=== PATIENT | female | born 1930 | race Caucasian/White ===

== ENCOUNTER 2017-05-16 08:11 | Inpatient (IN) | payer MEDICARE ==
[~2017-05-16] VITALS: Ht 149.9 cm; Wt 60.9 kg
[~2017-05-16 08:11] MED LIST: BACL10 PO; BUSP15 PO; BUSP5 PO; CLON.2 PO; CLON.5 PO; DILT120 PO; ELIQUIS2.5 MG PO; LORA.5 PO; TRAM50 PO; Toprol Xl25 MG PO
[2017-05-16 08:58] LABS: BASOPHILS ABSOLUTE AUTO 0.01 K/mm3 (0.00-0.23); BASOPHILS PERCENT AUTO 0 % (0-2); EOSINOPHILS ABSOLUTE AUTO 0.03 K/mm3 (0.00-0.68); EOSINOPHILS PERCENT AUTO 1 % (0-6); Hematocrit 35.2 % (33.0-51.0); Hemoglobin 12.7 g/dL (11.5-16.0); IMMATURE GRAN ABSOLUTE AUTO 0.02 K/mm3 (0.00-0.10); IMMATURE GRAN PERCENT AUTO 0 % (0-1); LYMPHOCYTES ABSOLUTE AUTO 0.31 K/mm3 (0.84-5.20); LYMPHOCYTES PERCENT AUTO 5 % (21-46); MONOCYTES ABSOLUTE AUTO 0.88 K/mm3 (0.16-1.47); MONOCYTES PERCENT AUTO 13 % (4-13); Mean Corpuscular HGB 29.4 pg (26.0-34.0); Mean Corpuscular HGB Conc 36.1 g/dL (31.5-36.5); Mean Corpuscular Volume 82 fL (80-100); Mean Platelet Volume 8.9 fL (9.1-12.4); NEUTROPHILS ABSOLUTE AUTO 5.41 K/mm3 (1.96-9.15); NEUTROPHILS PERCENT AUTO 81 % (41-73); Platelet Count 294 K/mm3 (150-400); RDW Coefficient Variation 11.3 % (11.7-14.2); RDW Standard Deviation 33.8 fL (35.1-46.3); Red Blood Cell Count 4.32 M/mm3 (3.80-5.20); White Blood Cell Count 6.66 K/mm3 (4.00-11.30)
[2017-05-16 09:19] LABS: Influenza A Negative (NEGATIVE); Influenza B Negative (NEGATIVE)
[2017-05-16 09:25] LABS: Alanine Aminotransfer (ALT/SGP 22 U/L (12-78); Albumin, Blood 3.5 g/dL (3.4-5.0); Alk Phos 81 U/L (50-136); Anion Gap 10 mmol/L (6-16); Aspartate Aminotrans (AST/SGOT 16 U/L (12-37); Bilirubin, Total 1.2 mg/dL (0.1-1.0); Blood Urea Nitrogen 15 mg/dL (8-24); Bun/Creatinine Ratio 35.5 (12.0-20.0); CO2, Blood 25 mmol/L (21-32); Calcium, Blood 7.7 mg/dL (8.5-10.1); Chloride, Blood 77 mmol/L (98-108); Creatinine, Blood 0.42 mg/dL (0.40-1.00); Globulin, Blood 3.6 g/dL (2.2-4.0); Glomerular Filtration Rate >60 (60-); Glucose, Blood 130 mg/dL (70-99); Potassium, Blood 3.3 mmol/L (3.5-5.5); Sodium, Blood 112 mmol/L (136-145); Total Protein, Blood 7.1 g/dL (6.4-8.2)
[2017-05-16 10:39] LABS: Magnesium, Blood 1.7 mg/dL (1.6-2.4)
[2017-05-16] MEDS ORDERED: PRAM.5 PO ×2 (12:21→12:22)
[2017-05-16] MEDS ORDERED: ZESTORETIC 20-121 EA (12:23)
[2017-05-16 14:26] LABS: Magnesium, Blood 1.7 mg/dL (1.6-2.4); Uric Acid, Blood 2.4 mg/dL (2.6-6.0)
[2017-05-16 14:31] LABS: Phosphorus, Blood 1.6 mg/dL (2.5-4.9); Potassium, Blood 3.5 mmol/L (3.5-5.5)
[2017-05-16] MEDS ORDERED: MAGOXI400 PO (20:56)
[2017-05-16] MEDS ORDERED: UBID10 PO (20:57)
[2017-05-17 04:58] LABS: Hematocrit 34.5 % (33.0-51.0); Hemoglobin 12.2 g/dL (11.5-16.0)
[2017-05-17 05:24] LABS: Albumin, Blood 3.1 g/dL (3.4-5.0); Anion Gap 10 mmol/L (6-16); Blood Urea Nitrogen 14 mg/dL (8-24); Bun/Creatinine Ratio 27.5 (12.0-20.0); CO2, Blood 23 mmol/L (21-32); Calcium, Blood 7.6 mg/dL (8.5-10.1); Chloride, Blood 87 mmol/L (98-108); Creatinine, Blood 0.51 mg/dL (0.40-1.00); Glomerular Filtration Rate >60 (60-); Glucose, Blood 97 mg/dL (70-99); Magnesium, Blood 1.8 mg/dL (1.6-2.4); Phosphorus, Blood 1.7 mg/dL (2.5-4.9); Potassium, Blood 3.4 mmol/L (3.5-5.5); Sodium, Blood 120 mmol/L (136-145)
[2017-05-17] MEDS ORDERED: METO25ER PO (12:48)
[2017-05-18 04:55] LABS: Hematocrit 31.8 % (33.0-51.0)
[2017-05-18 05:09] LABS: Albumin, Blood 2.8 g/dL (3.4-5.0); Anion Gap 8 mmol/L (6-16); Blood Urea Nitrogen 18 mg/dL (8-24); Bun/Creatinine Ratio 23.4 (12.0-20.0); CO2, Blood 26 mmol/L (21-32); Calcium, Blood 7.4 mg/dL (8.5-10.1); Chloride, Blood 96 mmol/L (98-108); Creatinine, Blood 0.77 mg/dL (0.40-1.00); Glomerular Filtration Rate >60 (60-); Glucose, Blood 84 mg/dL (70-99); Magnesium, Blood 1.8 mg/dL (1.6-2.4); Phosphorus, Blood 2.7 mg/dL (2.5-4.9); Potassium, Blood 3.4 mmol/L (3.5-5.5); Sodium, Blood 130 mmol/L (136-145)
[2017-05-18] MEDS ORDERED: POTCHL10ER PO (12:11)
[2017-05-18] MEDS ORDERED: FURO20 PO (12:11)
[2017-05-18] MEDS ORDERED: SODCHL1 PO (12:20)
== END 2017-05-18 13:58 | disposition home or self-care (01) | DRG 641 ==
LOC: ER 08:11 → MEDS 10:32 → ENPENDDIS 05-18 11:53 → MEDS 05-18 13:58
PROVIDERS: Emergency Medicine; Family Medicine; Internal Medicine Nephrology; Physician Assistant
DX: E87.1 Hypo-osmolality and hyponatremia (principal); E83.39 Other disorders of phosphorus metabolism; I48.2 Chronic atrial fibrillation; E88.09 Other disorders of plasma-protein metabolism, not elsewhere classified; D64.9 Anemia, unspecified; E87.6 Hypokalemia; G25.81 Restless legs syndrome; F41.9 Anxiety disorder, unspecified; J06.9 Acute upper respiratory infection, unspecified; N18.2 Chronic kidney disease, stage 2 (mild); Z96.653 Presence of artificial knee joint, bilateral; Z87.891 Personal history of nicotine dependence; Z79.899 Other long term (current) drug therapy; Z79.01 Long term (current) use of anticoagulants
CPT/HCPCS: 36415; 36416; 51702; 71046; 80053; 80069; 82533; 83690; 83735; 84100; 84132; 84295; 84443; 84550; 85014; 85018; 85025; 87804; 96361; 96374; 99285; C9113; J1200; J2405; J2550; J7030; J7040; J7050; J7060

== ENCOUNTER 2017-08-11 13:05 | Emergency (ER) | payer MEDICARE ==
[~2017-08-11] VITALS: Ht 162.6 cm; Wt 54.4 kg
[~2017-08-11 13:05] MED LIST changes: +FURO20 PO; +MAGOXI400 PO; +METO25ER PO; +POTCHL10ER PO; +PRAM.5 PO; +SODCHL1 PO; +UBID10 PO; +ZESTORETIC 20-121 EA
== END 2017-08-11 16:10 | disposition home or self-care (01) ==
LOC: ER 13:05
DX: S09.90XA Unspecified injury of head, initial encounter (principal); W18.30XA Fall on same level, unspecified, initial encounter; Z79.899 Other long term (current) drug therapy; F41.9 Anxiety disorder, unspecified; I48.91 Unspecified atrial fibrillation; Z87.891 Personal history of nicotine dependence
CPT/HCPCS: 70450; 72125; 72170; 99284

== ENCOUNTER 2017-08-13 16:20 | Emergency (ER) | payer MEDICARE ==
[~2017-08-13] VITALS: Ht 149.9 cm; Wt 60.3 kg
[2017-08-13 16:56] LABS: BASOPHILS ABSOLUTE AUTO 0.03 K/mm3 (0.00-0.23); BASOPHILS PERCENT AUTO 0 % (0-2); EOSINOPHILS ABSOLUTE AUTO 0.11 K/mm3 (0.00-0.68); EOSINOPHILS PERCENT AUTO 2 % (0-6); Hematocrit 39.1 % (33.0-51.0); Hemoglobin 12.8 g/dL (11.5-16.0); IMMATURE GRAN ABSOLUTE AUTO 0.02 K/mm3 (0.00-0.10); IMMATURE GRAN PERCENT AUTO 0 % (0-1); LYMPHOCYTES ABSOLUTE AUTO 1.03 K/mm3 (0.84-5.20); LYMPHOCYTES PERCENT AUTO 14 % (21-46); MONOCYTES ABSOLUTE AUTO 0.81 K/mm3 (0.16-1.47); MONOCYTES PERCENT AUTO 11 % (4-13); Mean Corpuscular HGB 29.8 pg (26.0-34.0); Mean Corpuscular HGB Conc 32.7 g/dL (31.5-36.5); Mean Corpuscular Volume 91 fL (80-100); Mean Platelet Volume 9.7 fL (9.1-12.4); NEUTROPHILS ABSOLUTE AUTO 5.25 K/mm3 (1.96-9.15); NEUTROPHILS PERCENT AUTO 72 % (41-73); Platelet Count 261 K/mm3 (150-400); RDW Coefficient Variation 13.6 % (11.7-14.2); RDW Standard Deviation 45.4 fL (35.1-46.3); White Blood Cell Count 7.25 K/mm3 (4.00-11.30)
[2017-08-13 17:14] LABS: Alanine Aminotransfer (ALT/SGP 23 U/L (12-78); Albumin, Blood 3.9 g/dL (3.4-5.0); Alk Phos 71 U/L (50-136); Anion Gap 8 mmol/L (6-16); Aspartate Aminotrans (AST/SGOT 24 U/L (12-37); Bilirubin, Total 1.1 mg/dL (0.1-1.0); Blood Urea Nitrogen 23 mg/dL (8-24); Bun/Creatinine Ratio 34.3 (12.0-20.0); CO2, Blood 25 mmol/L (21-32); Calcium, Blood 9.3 mg/dL (8.5-10.1); Chloride, Blood 102 mmol/L (98-108); Creatinine, Blood 0.67 mg/dL (0.40-1.00); Globulin, Blood 3.9 g/dL (2.2-4.0); Glomerular Filtration Rate >60 (60-); Glucose, Blood 102 mg/dL (70-99); Potassium, Blood 3.8 mmol/L (3.5-5.5); Sodium, Blood 135 mmol/L (136-145); Total Protein, Blood 7.8 g/dL (6.4-8.2)
[2017-08-13 18:26] LABS: Source, Urine Clean Catch
[2017-08-13 18:29] LABS: Appearance, Urine Clear (Clear); Bilirubin, Urine Neg (Neg); Blood, Urine Neg (Neg); Color, Urine Yellow (P-Yellow); Glucose Qualitative, Urine Neg (Neg); Ketones, Urine 2+ (Neg); Leukocyte Esterase, Urine Neg (Neg); Nitrite, Urine Neg (Neg); Protein, Urine Neg (Neg); Urobilinogen, Urine NORM (Normal)
[2017-08-13] MEDS ORDERED: Colace100 MG PO (18:56)
[2017-08-13] MEDS ORDERED: SENN187 PO (18:56)
== END 2017-08-13 19:29 | disposition home or self-care (01) ==
LOC: ER 16:20
PROVIDERS: Emergency Medicine
DX: K59.00 Constipation, unspecified (principal); F41.9 Anxiety disorder, unspecified; I48.91 Unspecified atrial fibrillation; Z87.891 Personal history of nicotine dependence; Z79.899 Other long term (current) drug therapy; Z79.01 Long term (current) use of anticoagulants
CPT/HCPCS: 36415; 74177; 80053; 81003; 83690; 85025; 96361; 96374; 96375; 99284; J2405; J3010; J7030; Q9967

== ENCOUNTER 2017-12-24 19:55 | Emergency (ER) | payer MEDICARE ==
[~2017-12-24] VITALS: Ht 149.9 cm; Wt 60.3 kg
[~2017-12-24 19:55] MED LIST changes: +Colace100 MG PO; +SENN187 PO
== END 2017-12-24 21:34 | disposition home or self-care (01) ==
LOC: ER 19:55
DX: S09.90XA Unspecified injury of head, initial encounter (principal); D68.9 Coagulation defect, unspecified; W01.198A Fall on same level from slipping, tripping and stumbling with subsequent striking against other object, initial encounter; Z88.8 Allergy status to other drugs, medicaments and biological substances; Z79.899 Other long term (current) drug therapy; F41.9 Anxiety disorder, unspecified; I48.91 Unspecified atrial fibrillation; Z87.891 Personal history of nicotine dependence
CPT/HCPCS: 70450; 99284-25

== ENCOUNTER 2018-01-20 21:06 | Emergency (ER) | payer MEDICARE ==
[~2018-01-20] VITALS: Ht 149.9 cm; Wt 60.3 kg
[2018-01-20] MEDS ORDERED: MELA3 PO (21:31)
[2018-01-20 21:32] LABS: BASOPHILS ABSOLUTE AUTO 0.04 K/mm3 (0.00-0.23); BASOPHILS PERCENT AUTO 1 % (0-2); EOSINOPHILS ABSOLUTE AUTO 0.15 K/mm3 (0.00-0.68); EOSINOPHILS PERCENT AUTO 3 % (0-6); Hematocrit 42.3 % (33.0-51.0); Hemoglobin 14.1 g/dL (11.5-16.0); IMMATURE GRAN ABSOLUTE AUTO 0.03 K/mm3 (0.00-0.10); IMMATURE GRAN PERCENT AUTO 1 % (0-1); LYMPHOCYTES ABSOLUTE AUTO 1.63 K/mm3 (0.84-5.20); LYMPHOCYTES PERCENT AUTO 28 % (21-46); MONOCYTES PERCENT AUTO 14 % (4-13); Mean Corpuscular HGB 29.7 pg (26.0-34.0); Mean Corpuscular HGB Conc 33.3 g/dL (31.5-36.5); Mean Corpuscular Volume 89 fL (80-100); NEUTROPHILS PERCENT AUTO 54 % (41-73); Platelet Count 334 K/mm3 (150-400); RDW Coefficient Variation 12.7 % (11.7-14.2); Red Blood Cell Count 4.74 M/mm3 (3.80-5.20); White Blood Cell Count 5.75 K/mm3 (4.00-11.30)
[2018-01-20 21:59] LABS: Alanine Aminotransfer (ALT/SGP 25 U/L (12-78); Albumin, Blood 3.8 g/dL (3.4-5.0); Alk Phos 92 U/L (50-136); Anion Gap 9 mmol/L (6-16); Aspartate Aminotrans (AST/SGOT 24 U/L (12-37); Bilirubin, Total 0.5 mg/dL (0.1-1.0); Blood Urea Nitrogen 21 mg/dL (8-24); Bun/Creatinine Ratio 29.7 (12.0-20.0); CO2, Blood 26 mmol/L (21-32); Calcium, Blood 8.6 mg/dL (8.5-10.1); Chloride, Blood 101 mmol/L (98-108); Creatinine, Blood 0.71 mg/dL (0.40-1.00); Globulin, Blood 3.9 g/dL (2.2-4.0); Glomerular Filtration Rate >60 (60-); Glucose, Blood 102 mg/dL (70-99); Potassium, Blood 3.9 mmol/L (3.5-5.5); Sodium, Blood 136 mmol/L (136-145); Total Protein, Blood 7.7 g/dL (6.4-8.2); Troponin I <0.015 ng/mL (0.000-0.040)
== END 2018-01-20 23:23 | disposition left against medical advice (07) ==
LOC: ER 21:06
PROVIDERS: Emergency Medicine
DX: Z53.21 Procedure and treatment not carried out due to patient leaving prior to being seen by health care provider (principal)
CPT/HCPCS: 36415; 80053; 84484; 85025; 93005; 93010

== ENCOUNTER → 2018-05-25 | Outpatient (CLI) | payer MEDICARE ==
[~2018-05-25] MED LIST changes: +MELA3 PO
== END | disposition home or self-care (01) ==
LOC: PLD 07:02 → LAB SHORT 07:02
DX: L60.2 Onychogryphosis (principal); B35.1 Tinea unguium
CPT/HCPCS: 88305; 88312

== ENCOUNTER 2018-06-13 14:33 | Emergency (ER) | payer MEDICARE ==
[~2018-06-13] VITALS: Ht 149.9 cm; Wt 62.6 kg
[2018-06-13 15:24] LABS: BASOPHILS ABSOLUTE AUTO 0.05 K/mm3 (0.00-0.23); BASOPHILS PERCENT AUTO 1 % (0-2); EOSINOPHILS ABSOLUTE AUTO 0.08 K/mm3 (0.00-0.68); EOSINOPHILS PERCENT AUTO 1 % (0-6); Hematocrit 38.5 % (33.0-51.0); Hemoglobin 12.6 g/dL (11.5-16.0); IMMATURE GRAN ABSOLUTE AUTO 0.04 K/mm3 (0.00-0.10); IMMATURE GRAN PERCENT AUTO 1 % (0-1); LYMPHOCYTES ABSOLUTE AUTO 1.21 K/mm3 (0.84-5.20); LYMPHOCYTES PERCENT AUTO 19 % (21-46); MONOCYTES ABSOLUTE AUTO 0.62 K/mm3 (0.16-1.47); MONOCYTES PERCENT AUTO 10 % (4-13); Mean Corpuscular HGB 29.8 pg (26.0-34.0); Mean Corpuscular HGB Conc 32.7 g/dL (31.5-36.5); Mean Corpuscular Volume 91 fL (80-100); Mean Platelet Volume 8.9 fL (9.1-12.4); NEUTROPHILS ABSOLUTE AUTO 4.37 K/mm3 (1.96-9.15); NEUTROPHILS PERCENT AUTO 69 % (41-73); Platelet Count 335 K/mm3 (150-400); RDW Coefficient Variation 12.5 % (11.7-14.2); RDW Standard Deviation 41.4 fL (35.1-46.3); Red Blood Cell Count 4.23 M/mm3 (3.80-5.20); White Blood Cell Count 6.37 K/mm3 (4.00-11.30)
[2018-06-13 16:05] LABS: Alanine Aminotransfer (ALT/SGP 25 U/L (12-78); Albumin, Blood 3.7 g/dL (3.4-5.0); Alk Phos 85 U/L (50-136); Anion Gap 9 mmol/L (6-16); Aspartate Aminotrans (AST/SGOT 22 U/L (12-37); Bilirubin, Total 0.5 mg/dL (0.1-1.0); Blood Urea Nitrogen 17 mg/dL (8-24); Bun/Creatinine Ratio 28.2 (12.0-20.0); CO2, Blood 23 mmol/L (21-32); Calcium, Blood 8.6 mg/dL (8.5-10.1); Chloride, Blood 99 mmol/L (98-108); Globulin, Blood 3.8 g/dL (2.2-4.0); Glomerular Filtration Rate >60 (60-); Glucose, Blood 101 mg/dL (70-99); Potassium, Blood 4.2 mmol/L (3.5-5.5); Sodium, Blood 131 mmol/L (136-145); Total Protein, Blood 7.5 g/dL (6.4-8.2); Troponin I <0.015 ng/mL (0.000-0.040)
== END 2018-06-13 20:28 | disposition home or self-care (01) ==
LOC: ER 14:33
PROVIDERS: Physician Assistant
DX: R06.00 Dyspnea, unspecified (principal); I10 Essential (primary) hypertension; F41.9 Anxiety disorder, unspecified; I48.91 Unspecified atrial fibrillation; Z79.899 Other long term (current) drug therapy; Z79.02 Long term (current) use of antithrombotics/antiplatelets; Z88.8 Allergy status to other drugs, medicaments and biological substances; Z87.891 Personal history of nicotine dependence
CPT/HCPCS: 36415; 71046; 80053; 84484; 85025; 93005; 93010; 99284-25

== ENCOUNTER 2018-11-03 13:24 | Inpatient (IN) | payer MEDICARE ==
[~2018-11-03] VITALS: Ht 149.9 cm; Wt 65.6 kg
[~2018-11-03 13:24] MED LIST changes: +Lopressor 25 mg25 MG PO; -METO25ER PO
[2018-11-03 14:08] LABS: BASOPHILS ABSOLUTE AUTO 0.03 K/mm3 (0.00-0.23); BASOPHILS PERCENT AUTO 1 % (0-2); EOSINOPHILS ABSOLUTE AUTO 0.08 K/mm3 (0.00-0.68); EOSINOPHILS PERCENT AUTO 2 % (0-6); IMMATURE GRAN ABSOLUTE AUTO 0.02 K/mm3 (0.00-0.10); IMMATURE GRAN PERCENT AUTO 0 % (0-1); LYMPHOCYTES PERCENT AUTO 22 % (21-46); MONOCYTES ABSOLUTE AUTO 0.49 K/mm3 (0.16-1.47); MONOCYTES PERCENT AUTO 11 % (4-13); Mean Corpuscular HGB 30.1 pg (26.0-34.0); Mean Corpuscular HGB Conc 32.5 g/dL (31.5-36.5); Mean Corpuscular Volume 93 fL (80-100); Mean Platelet Volume 9.1 fL (9.1-12.4); NEUTROPHILS ABSOLUTE AUTO 3.03 K/mm3 (1.96-9.15); NEUTROPHILS PERCENT AUTO 65 % (41-73); Platelet Count 297 K/mm3 (150-400); RDW Coefficient Variation 12.2 % (11.7-14.2); RDW Standard Deviation 41.8 fL (35.1-46.3); Red Blood Cell Count 4.32 M/mm3 (3.80-5.20); White Blood Cell Count 4.65 K/mm3 (4.00-11.30)
[2018-11-03 14:38] LABS: Alanine Aminotransfer (ALT/SGP 24 U/L (12-78); Albumin/Globulin Ratio 1.1 (0.8-1.8); Alk Phos 75 U/L (50-136); Anion Gap 8 mmol/L (6-16); Aspartate Aminotrans (AST/SGOT 22 U/L (12-37); Bilirubin, Total 0.8 mg/dL (0.1-1.0); Blood Urea Nitrogen 22 mg/dL (8-24); Bun/Creatinine Ratio 38.4 (12.0-20.0); CO2, Blood 26 mmol/L (21-32); Calcium, Blood 8.9 mg/dL (8.5-10.1); Chloride, Blood 99 mmol/L (98-108); Creatinine, Blood 0.57 mg/dL (0.40-1.00); Globulin, Blood 3.5 g/dL (2.2-4.0); Glomerular Filtration Rate >60 (60-); Glucose, Blood 107 mg/dL (70-99); Sodium, Blood 133 mmol/L (136-145); Total Protein, Blood 7.5 g/dL (6.4-8.2)
[2018-11-03] MEDS ORDERED: Robaxin750 MG PO (15:13)
[2018-11-03] MEDS ORDERED: Flecainide Acet50 MG PO (15:16)
[2018-11-03] MEDS ORDERED: PRAM.5 PO (15:17)
[2018-11-03] MEDS ORDERED: METO25ER PO (15:34)
[2018-11-03 16:59] LABS: International Normalized Ratio 0.99; Prothrombin Time Results 10.5 Sec (9.7-11.5)
--- NOTE | 2018-11-03 18:43 | NUR ---
SPOKE WITH DR TREJO RE: HOME MEDS. NEW ORDER TO RESUME ALL HOME MEDS EXCEPT ELIQUIS. WILL REPORT TO KRISHNA ORTIZ.
--- NOTE | 2018-11-03 18:44 | NUR ---
PATIENT TAKING DINNER. STATES R HIP PAIN 07/16. REPORT TO KRISHNA ORTIZ.
[2018-11-03 23:29] LABS: Source, Urine Catheter
[2018-11-03 23:36] LABS: Bilirubin, Urine Neg (Neg); Blood, Urine Neg (Neg); Glucose Qualitative, Urine Neg (Neg); Ketones, Urine 2+ (Neg); Leukocyte Esterase, Urine Neg (Neg); Nitrite, Urine Neg (Neg); Protein, Urine Neg (Neg); Urobilinogen, Urine NORM (Normal)
[2018-11-03 23:43] LABS: Appearance, Urine Clear (Clear); Color, Urine Yellow (P-Yellow)
[2018-11-04 05:58] LABS: BASOPHILS ABSOLUTE AUTO 0.02 K/mm3 (0.00-0.23); BASOPHILS PERCENT AUTO 0 % (0-2); EOSINOPHILS ABSOLUTE AUTO 0.05 K/mm3 (0.00-0.68); EOSINOPHILS PERCENT AUTO 1 % (0-6); Hematocrit 32.6 % (33.0-51.0); Hemoglobin 10.5 g/dL (11.5-16.0); IMMATURE GRAN ABSOLUTE AUTO 0.01 K/mm3 (0.00-0.10); IMMATURE GRAN PERCENT AUTO 0 % (0-1); LYMPHOCYTES ABSOLUTE AUTO 0.84 K/mm3 (0.84-5.20); LYMPHOCYTES PERCENT AUTO 12 % (21-46); MONOCYTES ABSOLUTE AUTO 0.86 K/mm3 (0.16-1.47); MONOCYTES PERCENT AUTO 12 % (4-13); Mean Corpuscular HGB 30.3 pg (26.0-34.0); Mean Corpuscular HGB Conc 32.2 g/dL (31.5-36.5); Mean Corpuscular Volume 94 fL (80-100); Mean Platelet Volume 9.4 fL (9.1-12.4); NEUTROPHILS ABSOLUTE AUTO 5.43 K/mm3 (1.96-9.15); NEUTROPHILS PERCENT AUTO 75 % (41-73); Platelet Count 254 K/mm3 (150-400); RDW Coefficient Variation 12.3 % (11.7-14.2); RDW Standard Deviation 42.6 fL (35.1-46.3); Red Blood Cell Count 3.46 M/mm3 (3.80-5.20); White Blood Cell Count 7.21 K/mm3 (4.00-11.30)
--- NOTE | 2018-11-04 07:50 | NUR ---
SHIFT SUMMARY PT A&O X4 T/O SHIFT. PAIN IN RLE MANAGED PER EMAR; PPPX4. RA; VSS; TELEMETRY IN PLACE; SR WITH 1 DEGREE BLOCK PER TRACK LAYING SUPERVISOR. CATHETER PLACED BY REPAIRER RECREATIONAL VEHICLE, SC; BARCENAS DRAINING WELL. PT NPO POST MIDNIGHT; ORAL SPONGES IN REACH. SCD TO LLE. CALL LIGHT IN REACH; PT DEMONSTRATES USE. REPORT GIVEN TO DAY SHIFT RN.
--- NOTE | 2018-11-04 10:22 | NUR ---
PT TO SDS. STATES LAST TIME TO EAT OR DRINK WAS AT MIDNIGHT. TOOK BP MED THIS AM. PT IS LAYING CALMLY AND QUIETLY AT THIS TIME. PT STATES NO PAIN AT THIS TIME.
--- NOTE | 2018-11-04 10:39 | NUR ---
SPOKE TO DR BLANC. HE STATES SINCE PT HGB IS LOW TO GO AHEAD AND ORDER TXA FOR PT. ALSO GAVE VERBAL ORDER FOR ANCEF 2GM PRE-OP.
--- NOTE | 2018-11-04 10:41 | NUR ---
PT IS SLEEPING SOUNDLY AT THIS TIME.
--- NOTE | 2018-11-04 10:51 | NUR ---
PT HEARING AIDS WERE REMOVED AND LEFT IN ROOM. PT REMOVED PARTIAL DENTURES AND LEFT IN ROOM. PT GLASSES ARE LEFT IN PT ROOM. PT IS WEARING A RING ON HER LEFT RING FINGER THAT WILL NOT COME OFF. RN TAPED OVER AND PT SIGNED FORM.
--- NOTE | 2018-11-04 10:54 | NUR ---
PT FIT BIT REMOVED AND WILL STAY IN PACU AND RETURNED WITH PT TO ROOM AFTER SX. HAS A PROCEDURE BEFORE THIS CASE ONCE COMPLETE PT WILL GO TO THE OR.
--- NOTE | 2018-11-04 11:36 | NUR ---
PT CONTINUES TO SLEEP SOUNDLY WITH NO COMPLAINTS.
--- NOTE | 2018-11-04 11:52 | NUR ---
PT WOKE UP TO STATE THAT RT HIP WAS STARTING TO HURT SOME THEN RETURNED TO SLEEP.
--- NOTE | 2018-11-04 11:56 | NUR ---
PHARMACEUTICAL ASSISTANT (SAMEERA) AT BEDSIDE REPORT DONE
--- NOTE | 2018-11-04 12:00 | NUR ---
PT HAS STATED SHE IS COMFORTABLE AND IS VISITING WITH FRIENDS AT BEDSIDE, DENIES ANY PAIN, WILL CTM. PT LEFT UNIT FOR SURGERY AT ABOUT 1030
--- NOTE | 2018-11-04 12:19 | NUR ---
11/04/18 1219 Agustin Lay PATIENT ARRIVED TO OR WITH BARCENAS CATH IN PLACE, DRAINING AYSHA COLORED URINE
--- NOTE | 2018-11-04 14:19 | NUR ---
WATCH WITH PT
--- NOTE | 2018-11-04 15:21 | NUR ---
XRAY ORDER DID NOT POPULATE SECOND TIME IT WAS PUT IN COMPUTER IT THEN DID POPULATE AND XRAY WAS COMPLETED
--- NOTE | 2018-11-04 16:09 | NUR ---
POST OP: REPORT GIVEN TO ADALGISA, REGISTRAR MUSEUM FROM TRAIN EXAMINER. PT BACK FROM SURGERY AT ABOUT 1450. PT IS A/O, VSS, DENIES PAIN. SURGICAL SITE WNL, CSM INTACT. PT ABLE TO EAT JELLO AND ICE CHIPS. TXA GIVEN. WILL CTM
--- NOTE | 2018-11-04 19:40 | NUR ---
SUMMARY: NO CHANGE SINCE POST OP. VSS, A/O. PT HAS DENIED PAIN, SURGICAL SITE WNL. HEPERIN BOLUS AND AND DRIP STARTED. TELE WNL. NO SAFETY CONCERNS AT THIS TIME.
[2018-11-05 05:36] LABS: BASOPHILS ABSOLUTE AUTO 0.01 K/mm3 (0.00-0.23); BASOPHILS PERCENT AUTO 0 % (0-2); EOSINOPHILS PERCENT AUTO 0 % (0-6); Hematocrit 26.1 % (33.0-51.0); IMMATURE GRAN ABSOLUTE AUTO 0.04 K/mm3 (0.00-0.10); IMMATURE GRAN PERCENT AUTO 1 % (0-1); LYMPHOCYTES ABSOLUTE AUTO 0.72 K/mm3 (0.84-5.20); LYMPHOCYTES PERCENT AUTO 9 % (21-46); MONOCYTES ABSOLUTE AUTO 0.95 K/mm3 (0.16-1.47); MONOCYTES PERCENT AUTO 12 % (4-13); Mean Corpuscular HGB 30.9 pg (26.0-34.0); Mean Corpuscular HGB Conc 34.5 g/dL (31.5-36.5); Mean Platelet Volume 9.5 fL (9.1-12.4); NEUTROPHILS ABSOLUTE AUTO 6.35 K/mm3 (1.96-9.15); NEUTROPHILS PERCENT AUTO 79 % (41-73); Platelet Count 183 K/mm3 (150-400); RDW Coefficient Variation 12.1 % (11.7-14.2); RDW Standard Deviation 39.7 fL (35.1-46.3); Red Blood Cell Count 2.91 M/mm3 (3.80-5.20); White Blood Cell Count 8.07 K/mm3 (4.00-11.30)
[2018-11-05 05:44] LABS: Mean Corpuscular Volume 90 fL (80-100)
[2018-11-05 05:51] LABS: Anion Gap 6 mmol/L (6-16); Blood Urea Nitrogen 12 mg/dL (8-24); Bun/Creatinine Ratio 23.1 (12.0-20.0); CO2, Blood 23 mmol/L (21-32); Calcium, Blood 7.3 mg/dL (8.5-10.1); Chloride, Blood 103 mmol/L (98-108); Creatinine, Blood 0.52 mg/dL (0.40-1.00); Glomerular Filtration Rate >60 (60-); Glucose, Blood 132 mg/dL (70-99); Potassium, Blood 4.3 mmol/L (3.5-5.5); Sodium, Blood 132 mmol/L (136-145)
--- NOTE | 2018-11-05 08:44 | NUR ---
CLAIR PT ANXIOUS FOR D/C HOME. UNDERSTANDS WILL BE OOB WITH STAFF/PT TODAY TO ASSESS ACTIVITY LEVEL TOLERATED WITHIN ORDER PARAMETERS. PT TOOK ATIVAN 0.5 MG PO AND PAIN PILL LAST NIGHT FOR PAIN/SLEEP. PT USUALLY TAKES ATIVAN 1MG. PT REPORTED DID NOT SLEEP WELL. I ASKED IF SHE WOULD LIKE SOMETHING ELSE IN ADDITION,HOWEVER,PT DECLINED. I ADVISED HER DAY RN AGREED TO FOLLOW UP AND REQUEST PT ORDERS BE CHANGED TO 1 MG AT HS.
--- NOTE | 2018-11-05 16:11 | NUR ---
SUMMARY: PT IS POD1 R HIP REPAIR. NO ACUTE CHANGE THIS SHIFT. VSS, TELE AND HEPERIN DRIP DC'D. PT IS A/O AND MINIMAL PAIN. SURGICAL SITE WNL. PT UP WITH GAIT BELT AND FWW. TOLERATING REG DIET, SALINE LOCKED AND VOIDING. PLAN IS DC TO SNF WHEN BED OPEN. SEE PHYSICAL THERAPY NOTES. PT HAS HAD MANY VISITORS TODAY. WILL CTM AND REPORT TO KRISHNA RN.
[2018-11-06 05:40] LABS: BASOPHILS ABSOLUTE AUTO 0.03 K/mm3 (0.00-0.23); BASOPHILS PERCENT AUTO 0 % (0-2); EOSINOPHILS ABSOLUTE AUTO 0.27 K/mm3 (0.00-0.68); EOSINOPHILS PERCENT AUTO 4 % (0-6); Hematocrit 29.9 % (33.0-51.0); Hemoglobin 9.6 g/dL (11.5-16.0); IMMATURE GRAN ABSOLUTE AUTO 0.03 K/mm3 (0.00-0.10); IMMATURE GRAN PERCENT AUTO 0 % (0-1); LYMPHOCYTES ABSOLUTE AUTO 1.59 K/mm3 (0.84-5.20); LYMPHOCYTES PERCENT AUTO 21 % (21-46); MONOCYTES ABSOLUTE AUTO 0.91 K/mm3 (0.16-1.47); MONOCYTES PERCENT AUTO 12 % (4-13); Mean Corpuscular HGB 29.4 pg (26.0-34.0); Mean Corpuscular HGB Conc 32.1 g/dL (31.5-36.5); Mean Corpuscular Volume 91 fL (80-100); Mean Platelet Volume 9.4 fL (9.1-12.4); NEUTROPHILS ABSOLUTE AUTO 4.66 K/mm3 (1.96-9.15); NEUTROPHILS PERCENT AUTO 62 % (41-73); Platelet Count 240 K/mm3 (150-400); RDW Coefficient Variation 12.5 % (11.7-14.2); RDW Standard Deviation 41.7 fL (35.1-46.3); Red Blood Cell Count 3.27 M/mm3 (3.80-5.20); White Blood Cell Count 7.49 K/mm3 (4.00-11.30)
--- NOTE | 2018-11-06 08:14 | NUR ---
SUMMARY PT PLANS TO STAY IN HOSPITAL 1-2 DAYS FURTHER.
--- NOTE | 2018-11-06 12:21 | NUR ---
Patient just finished P.T and taking pain meds so patient explained that she is exhausted but patient requested prayer which I gladly provided. Patient thanked me. I will continue to remain available to patient and family.
--- NOTE | 2018-11-06 18:00 | NUR ---
SHIFT SUMMARY PT EATING AND DRINKING, VOIDING. PT BEEN UP TO CHAIR. AMBULATED IN HALLWAY WITH WALKER AND ASSIST. PT HAS HAD MULT VISITORS. BEEN ASSISTED WITH ADL'S PRN. USING CALL LIGHT APPR. BEEN MED PRN FOR PAIN.
--- NOTE | 2018-11-06 19:18 | NUR ---
Initial Visit: Palliative Care Consult for Musculoskeletal and Psych/Soc./Moral Distress. Pt is A&O and denies pain at this time. Pt denies anxiety, dyspnea, and nausea at this time. Engaged in therapeutic discussion regarding goals of care. Pt reports living at [facility]. She is of [employer] arik and reports already receiving a visit from spiritual care. Pt reports plan is to discharge home tomorrow with home health. She reports her son is coming to help during her recovery. Pt reports independence of her ADLs and has no concerns at this time. Discussed current POLST on file and Pt confirms wishes are correct. POLST reads DNR, Limited Treatment, and No Tube Feedings. Spoke with bedside nurse Jayant and he reports Pt expressed needs for a walker when she returns home. Jayant reports no other concerns at this time. Called and spoke with Dr Millan regarding POLST on file and Pt's wishes to be a DNR. [facility] per V/O from Dr Millan. Palliative Care will remain available.
--- NOTE | 2018-11-07 07:29 | NUR ---
SUMMARY: POD 3 GAMMA NAIL REPAIR OF RIGHT HIP FX BY DR. BLANC. VSS, AFEBRILE, ROOM AIR. TOLERATING REG PO DIET AND VOIDING WITHOUT DIFFICULTY. PT MOVES SLOWLY BUT WELL AND PAIN IS WELL CONTROLLED WITH 1 TAB NORCO X2 AND 5MG ROXICODONE. ANTICIPATE PT/OT AND POSSIBLE DC HOME WITH HOME HEALTH LATER THIS DAY.
--- NOTE | 2018-11-07 08:26 | NUR ---
JEFF HERE TO SEE PT.
--- NOTE | 2018-11-07 11:25 | NUR ---
OT AND PHYSICAL THERAPY HERE TO SEE PT.
[2018-11-07] MEDS ORDERED: Norco 5-325 Ta1 EACH PO (11:58)
--- NOTE | 2018-11-07 13:29 | NUR ---
DISCHARGE: PT EATING AND DRINKING. PT VOIDING. PT HAD BM PRIOR TO LEAVING. PT REPORTS PAIN TOLERABLE ON PO PAIN MEDICATION. PT GOING HOME WITH HOME HEALTH. FAMILY REPORTED TO BE STAYING WITH PT. PT WORKED WITH OT/PT TODAY. PT REPORTS HAVING APPR EQUIP AT HOME. PT/FAMILY REPORTS UNDERSTANDING DISHARGE INSTRUCTIONS. PT SENT WITH BELONGINGS AND DRESSING SUPPLIES.
== END 2018-11-07 13:40 | disposition home health service (06) | DRG 481 ==
LOC: ER 13:24 → SURS 14:55
PROVIDERS: Emergency Medicine; Orthopaedic Surgery; ADMIT Internal Medicine
PROC: 0QS634Z Reposition Right Upper Femur with Internal Fixation Device, Percutaneous Approach (ICD-10-PCS; principal; 2018-11-04 11:30)
DX: S72.044A Nondisplaced fracture of base of neck of right femur, initial encounter for closed fracture (principal); E87.1 Hypo-osmolality and hyponatremia; W19.XXXA Unspecified fall, initial encounter; I48.91 Unspecified atrial fibrillation; Z79.01 Long term (current) use of anticoagulants; F41.9 Anxiety disorder, unspecified; G25.81 Restless legs syndrome; Z85.42 Personal history of malignant neoplasm of other parts of uterus; I48.2 Chronic atrial fibrillation
CPT/HCPCS: 36415; 71045; 72170; 73502; 73552; 80048; 80053; 81003; 85025; 85610; 85730; 96361; 96374; 96375; 97110; 97116; 97161; 97165; 97530; 97535; 99284-25; A9270; A9270-GY; C1713; C1769; J0690; J1100; J1644; J2060; J2370; J2405; J2704; J3010; J7030; J7120

== ENCOUNTER → 2019-03-26 | Outpatient (CLI) | payer MEDICARE ==
[~2019-03-26] MED LIST changes: +Flecainide Acet50 MG PO; +METO25ER PO; +Norco 5-325 Ta1 EACH PO; +Robaxin750 MG PO
== END | disposition home or self-care (01) ==
LOC: LAB SHORT 10:09 → LAB 10:09
DX: C44.219 Basal cell carcinoma of skin of left ear and external auricular canal (principal); L57.0 Actinic keratosis
CPT/HCPCS: 88305

== ENCOUNTER → 2019-10-22 | Outpatient (CLI) | payer MEDICARE | END | disposition home or self-care (01) | LOC: PLD 07:35 → LAB SHORT 07:35 | DX: L98.8 Other specified disorders of the skin and subcutaneous tissue (principal) | CPT/HCPCS: 88305; 88312 ==

== ENCOUNTER 2019-11-28 13:51 | Inpatient (IN) | payer MEDICARE ==
[~2019-11-28] VITALS: Ht 149.9 cm; Wt 56.2 kg
[~2019-11-28 13:51] MED LIST changes: +Aspir 8181 MG PO; -ELIQUIS2.5 MG PO; +ELIQUIS5 MG PO; -FURO20 PO; -Flecainide Acet50 MG PO; -LORA.5 PO; -POTCHL10ER PO
[2019-11-28] MEDS ORDERED: LORA.5 PO (15:19)
[2019-11-28] MEDS ORDERED: POTA10T PO (15:19)
[2019-11-28] MEDS ORDERED: Keppra250 MG PO (15:20)
[2019-11-28] MEDS ORDERED: METO25ER PO (15:21)
[2019-11-28] MEDS ORDERED: PRAM.5 PO ×2 (15:22)
[2019-11-28] MEDS ORDERED: Flecainide Acet50 MG PO (15:23)
[2019-11-28] MEDS ORDERED: FUROSEMIDE20 MG PO (15:23)
[2019-11-28] MEDS ORDERED: ELIQUIS2.5 MG PO (15:24)
[2019-11-28] MEDS ORDERED: Aspir 8181 MG PO (15:33)
--- NOTE | 2019-11-29 06:10 | NUR ---
patient admitted for symptomatic bradycardia shortly after discharge. No acute events overnight, no symptomatic bradycardia or any other clinical complaints. Some home medications were restarted as a patient requested and she will resume on her other home medications and the following day. No concerns at this time.
--- NOTE | 2019-11-29 17:36 | NUR ---
TELEPHONE CALL TO DR. NESS OFFICE. SPOKE WITH DIANA WHITE. SHE WILL SPEAK TO DR. CINTRON REGARDING INCREASED HEART RATE TODAY TO 110-120. WILL CONTINUE TO MONITOR AND WAIT FOR ADDITIONAL ORDERS.
--- NOTE | 2019-11-29 18:17 | NUR ---
SHIFT SUMMARY; A/A/OX4 DURING SHIFT. PT DECIDING TODAY IF WANTING TO PROCEED WITH PACEMAKER PLACEMENT. HEART RATE IN 80'S MOST OF DAY, INCREASING TO 110-120 IN LATER AFTERNOON, NOTIFIED DR. CINTRON. TELEPHONE ORDERS GIVEN FOR LOPRESSOR 5MG IV. PT TO BE NPO AFTER MIDNIGHT TONIGHT FOR REEVAL BY DR. CINTRON IN AM. WILL CONTINUE TO MONITOR AND TREAT UNTIL CHANGE OF SHIFT.
[2019-12-26] MEDS ORDERED: ISODIN10 PO (14:54)
[2019-12-26] MEDS ORDERED: FLUT.05NI (14:55)
[2019-12-27] MEDS ORDERED: CENTRUM SILVER1 EAC2 PO (09:27)
[2019-12-27] MEDS ORDERED: Flecainide Acet50 MG PO (09:28)
[2019-12-27] MEDS ORDERED: KEPPRA250 MG PO (13:58)
== END 2019-11-30 12:24 | disposition home or self-care (01) | DRG 310 ==
LOC: ER 13:51 → PCU 13:52
PROVIDERS: ADMIT Internal Medicine
DX: R00.1 Bradycardia, unspecified (principal); Z86.73 Personal history of transient ischemic attack (TIA), and cerebral infarction without residual deficits; Z96.653 Presence of artificial knee joint, bilateral; Z96.612 Presence of left artificial shoulder joint; Z79.82 Long term (current) use of aspirin; Z86.711 Personal history of pulmonary embolism; I48.0 Paroxysmal atrial fibrillation; I08.3 Combined rheumatic disorders of mitral, aortic and tricuspid valves; I49.5 Sick sinus syndrome; I16.0 Hypertensive urgency; T46.2X5A Adverse effect of other antidysrhythmic drugs, initial encounter; Y92.009 Unspecified place in unspecified non-institutional (private) residence as the place of occurrence of the external cause
CPT/HCPCS: 93005; 93010; 96374; 99285-25; A9270; G0378; J2405

== ENCOUNTER 2020-06-29 09:20 | Emergency (ER) | payer MEDICARE ==
[~2020-06-29] VITALS: Ht 152.4 cm; Wt 61.2 kg
[~2020-06-29 09:20] MED LIST changes: +CENTRUM SILVER1 EAC2 PO; +ELIQUIS2.5 MG PO; +FLUT.05NI; +FUROSEMIDE20 MG PO; +Flecainide Acet50 MG PO; +ISODIN10 PO; +KEPPRA250 MG PO; +Keppra250 MG PO; +LORA.5 PO; +POTA10T PO
[2020-06-29 10:07] LABS: BASOPHILS ABSOLUTE AUTO 0.03 K/mm3 (0.00-0.23); BASOPHILS PERCENT AUTO 1 % (0-2); EOSINOPHILS ABSOLUTE AUTO 0.19 K/mm3 (0.00-0.68); EOSINOPHILS PERCENT AUTO 4 % (0-6); Hemoglobin 12.8 g/dL (11.5-16.0); IMMATURE GRAN ABSOLUTE AUTO 0.04 K/mm3 (0.00-0.10); IMMATURE GRAN PERCENT AUTO 1 % (0-1); LYMPHOCYTES PERCENT AUTO 21 % (21-46); MONOCYTES ABSOLUTE AUTO 0.66 K/mm3 (0.16-1.47); MONOCYTES PERCENT AUTO 14 % (4-13); Mean Corpuscular HGB 30.1 pg (26.0-34.0); Mean Corpuscular HGB Conc 32.8 g/dL (31.5-36.5); Mean Corpuscular Volume 92 fL (80-100); Mean Platelet Volume 9.5 fL (9.1-12.4); NEUTROPHILS ABSOLUTE AUTO 2.85 K/mm3 (1.96-9.15); NEUTROPHILS PERCENT AUTO 60 % (41-73); Platelet Count 264 K/mm3 (150-400); RDW Coefficient Variation 12.6 % (11.7-14.2); RDW Standard Deviation 42.3 fL (35.1-46.3); Red Blood Cell Count 4.25 M/mm3 (3.80-5.20); White Blood Cell Count 4.77 K/mm3 (4.00-11.30)
[2020-06-29 10:35] LABS: Alanine Aminotransfer (ALT/SGP 27 U/L (12-78); Albumin, Blood 3.5 g/dL (3.4-5.0); Alk Phos 86 U/L (50-136); Anion Gap 5 mmol/L (6-16); Aspartate Aminotrans (AST/SGOT 21 U/L (12-37); Bilirubin, Total 0.9 mg/dL (0.1-1.0); Blood Urea Nitrogen 18 mg/dL (8-24); Bun/Creatinine Ratio 25.2 (12.0-20.0); CO2, Blood 27 mmol/L (21-32); Calcium, Blood 8.9 mg/dL (8.5-10.1); Chloride, Blood 101 mmol/L (98-108); Creatinine, Blood 0.72 mg/dL (0.40-1.00); Globulin, Blood 3.6 g/dL (2.2-4.0); Glomerular Filtration Rate >60 (60-); Glucose, Blood 99 mg/dL (70-99); Potassium, Blood 4.1 mmol/L (3.5-5.5); Sodium, Blood 133 mmol/L (136-145); Total Protein, Blood 7.1 g/dL (6.4-8.2); Troponin I <0.015 ng/mL (0.000-0.040)
[2020-11-07] MEDS ORDERED: METO50ER PO (08:20)
[2020-11-07] MEDS ORDERED: Flecainide Acet50 MG PO (12:34)
[2020-11-07] MEDS ORDERED: PRAM.5 PO (12:35)
== END 2020-06-29 16:14 | disposition home or self-care (01) ==
LOC: ER 09:20
PROVIDERS: Physician Assistant
DX: S39.012A Strain of muscle, fascia and tendon of lower back, initial encounter (principal); I48.91 Unspecified atrial fibrillation; E78.5 Hyperlipidemia, unspecified; Z88.8 Allergy status to other drugs, medicaments and biological substances; Z79.01 Long term (current) use of anticoagulants; Z86.73 Personal history of transient ischemic attack (TIA), and cerebral infarction without residual deficits; Z79.899 Other long term (current) drug therapy; X58.XXXA Exposure to other specified factors, initial encounter
CPT/HCPCS: 36415; 80053; 84484; 85025; 93005; 93010; 99284-25